=== PATIENT | female | born 1955 | race Two or more races ===

== ENCOUNTER → 2025-05-29 | Emergency (ER) | payer OTHER ==
[~2025-05-29] VITALS: Ht 170.2 cm; Wt 89.4 kg
[~2025-05-29] MED LIST: BACTRIM DS TAB1 EACH PO; CEFTRIAXONE SODIUM 1,000 MG VIAL IM STA; CEFTRIAXONE SODIUM 1,000 MG VIAL ONE; DEXAMETHASONE SODIUM PHOSPHATE 4 MG/ML VIAL IM STA; DEXAMETHASONE SODIUM PHOSPHATE 4 MG/ML VIAL ONE; DIPHTH,PERTUSS(ACELL),TET VAC 0.5 ML SYRINGE IM ONE; DIPHTH,PERTUSS(ACELL),TET VAC 0.5 ML VIAL IM ONE; LIPITOR40 M1
== END | disposition home or self-care (01) ==
LOC: ER 17:18
DX: S61.451A Open bite of right hand, initial encounter (principal); W55.01XA Bitten by cat, initial encounter; Y93.89 Activity, other specified; Y92.89 Other specified places as the place of occurrence of the external cause; E11.9 Type 2 diabetes mellitus without complications; I10 Essential (primary) hypertension; Z91.018 Allergy to other foods
CPT/HCPCS: 90471; 90714; J1670